=== PATIENT | male | born 1945 | race Caucasian/White ===

== ENCOUNTER 2024-01-03 10:32 | Outpatient (CLI) | payer MEDICARE, OTHER ==
[2024-01-03] MEDS ORDERED: Iopamidol 370 76% 100 ML VIAL ONE (10:38)
== END 2024-01-03 10:33 | disposition home or self-care (01) ==
LOC: CSHCT 10:32
PROVIDERS: ATTEND Thoracic Surgery (Cardiothoracic Vascular Surgery)
DX: I71.40 Abdominal aortic aneurysm, without rupture, unspecified (principal); Z95.828 Presence of other vascular implants and grafts
CPT/HCPCS: 74174; 82565; Q9967